=== PATIENT | female | born 2000 | race Caucasian/White ===

== ENCOUNTER 2021-03-11 04:43 | Emergency (ER) | payer MEDICAID, OTHER ==
[~2021-03-11] VITALS: Ht 167.6 cm; Wt 77.3 kg
[2021-03-11] MEDS ORDERED: ondansetron/PF 4mg/2ml inj IV ONE (05:15)
[2021-03-11] MEDS ORDERED: normal saline 1000ML IV soln IVB ONE (05:15)
[2021-03-11] MEDS ORDERED: ketorolac trometh. 30mg/ml inj. IV ONE (05:15)
[2021-03-11 05:48] LABS: BASOPHILS % (AUTO) 0.1 % (0-1); EOSINOPHILS # (AUTO) 0.1 X10'3 (0-0.9); EOSINOPHILS % (AUTO) 0.7 % (0-6); HEMATOCRIT 40.8 % (35.0-45.0); HEMOGLOBIN 14.2 g/dl (12.0-16.0); LYMPHOCYTES # (AUTO) 0.2 X10'3 (1.1-4.8); LYMPHOCYTES % (AUTO) 2.3 % (21-51); MEAN CORPUSCULAR HEMOGLOBIN 32.2 PG (27.0-31.0); MEAN CORPUSCULAR HGB CONC 34.8 g/dL (33.0-36.5); MEAN CORPUSCULAR VOLUME 92.6 FL (78-98); MEAN PLATELET VOLUME 8.6 FL (7.4-10.4); MONOCYTES # (AUTO) 0.5 X10'3 (0-0.9); MONOCYTES % (AUTO) 5.8 % (2-12); NEUTROPHILS # (AUTO) 8.4 X10'3 (1.8-7.7); NEUTROPHILS % (AUTO) 91.1 % (42-75); PLATELET COUNT 285 X10'3 (140-440); RED BLOOD COUNT 4.41 X10'6 (4.20-5.60); RED CELL DISTRIBUTION WIDTH 12.2 % (11.5-14.5); WHITE BLOOD COUNT 9.3 X10'3 (4.5-11.0)
[2021-03-11 06:09] LABS: ALANINE AMINOTRANSFERASE 39 U/L (12-78); ALBUMIN 4.5 G/DL (3.4-5.0); ALBUMIN/GLOBULIN RATIO 1.3 (1.1-1.5); ALKALINE PHOSPHATASE 70 IU/L (20-180); ANION GAP 13 (8-16); ASPARTATE AMINO TRANSFERASE 30 U/L (10-37); BILIRUBIN,TOTAL 0.3 MG/DL (0.1-1.0); BLOOD UREA NITROGEN 5 MG/DL (7-18); BUN/CREATININE RATIO 6.3 (6.6-38.0); CALCIUM 9.2 MG/DL (8.5-10.1); CHLORIDE 105 MMOL/L (99-107); CREATININE 0.79 MG/DL (0.40-0.90); GLUCOSE 127 MG/DL (70-104); POTASSIUM 4.1 MMOL/L (3.5-5.1); SODIUM 143 MMOL/L (135-145); eGFR > 90 ML/MIN
[2021-03-11 06:14] LABS: LIPASE < 50 U/L (73-393)
[2021-03-11 06:44] LABS: BETA HCG,QUANTITATIVE < 1.0 mIU/ml
[2021-03-11 06:54] LABS: CLARITY,URINE SLIGHTLY CLOUDY (Clear); COLOR,URINE YELLOW (Yellow); GLUCOSE, URINE NEGATIVE (Neg); KETONES,URINE TRACE mg/dl (Neg); LEUKOCYTE ESTERASE ,URINE NEGATIVE (Neg); NITRITES, URINE NEGATIVE (Neg); OCCULT BLOOD,URINE NEGATIVE (Neg); PH,URINE >=9.0 (4.8-8.0); PROTEIN,URINE NEGATIVE (Neg); UROBILINOGEN,URINE 0.2 E.U/dL (0.2-1.0)
[2021-03-11 06:56] LABS: UA COLLECTION TYPE CLN CATCH MIDSTREAM
[2021-03-11 07:00] LABS: BACTERIA,URINE 1+ /HPF (Neg); MUCUS STRANDS FEW /LPF (Neg); RBC,URINE NONE SEEN /HPF (0-2); SQUAMOUS EPITHELIAL CELL,UR MANY /LPF (FEW); WBC,URINE 0-4 /HPF (0-4)
[2021-03-11 07:04] LABS: URINE HCG NEGATIVE (NEG)
[2021-03-11] MEDS ORDERED: ONDA-103 PO (07:17)
[2021-03-11 07:39] VITALS: BP 158/99
== END 2021-03-11 07:41 | disposition home or self-care (01) ==
LOC: ER 04:44
DX: U07.1 COVID-19 (principal); R11.10 Vomiting, unspecified
CPT/HCPCS: 36415; 71045; 80053; 81001; 81025; 83690; 84145; 84484; 84702; 85025; 87635; 96374; 96375; 99284; C9803; J1885; J2405; J7030

== ENCOUNTER 2021-08-08 16:10 | Emergency (ER) | payer MEDICAID ==
[~2021-08-08] VITALS: Ht 167.6 cm; Wt 81.8 kg
[~2021-08-08 16:10] MED LIST: ONDA-103 PO
[2021-08-08 16:17] VITALS: BP 134/76
[2021-08-08] MEDS ORDERED: carbamide peroxide 15ml bottle EACH EAR SCH (17:00)
== END 2021-08-08 18:42 | disposition home or self-care (01) ==
LOC: ER 16:10
DX: H61.23 Impacted cerumen, bilateral (principal)
CPT/HCPCS: 99283

== ENCOUNTER 2023-02-08 11:41 | Emergency (ER) | payer OTHER, MEDICAID ==
[~2023-02-08] VITALS: Ht 167.6 cm; Wt 97.0 kg
[2023-02-08 11:50] VITALS: TEMP 98
[2023-02-08 12:26] LABS: URINE HCG NEGATIVE (NEG)
[2023-02-08] MEDS ORDERED: oxyCODONE/APAP 5-325mg tablet PO ONE (13:15)
[2023-02-08] MEDS ORDERED: ketorolac trometh inj. 60 MG/2 ML VIAL IM ONE (13:35)
[2023-02-08] MEDS ORDERED: diazepam inj 5 MG/ML inj. IM ONE (13:35)
[2023-02-08] MEDS ORDERED: NAPR-56 PO (13:39)
[2023-02-08] MEDS ORDERED: CYCL-1 PO (13:39)
[2023-02-08 14:14] VITALS: BP 154/89; PULSE 75; RESP 20; O2SAT 98
== END 2023-02-08 14:18 | disposition home or self-care (01) ==
LOC: ER 11:42
DX: S01.81XA Laceration without foreign body of other part of head, initial encounter (principal); S39.012A Strain of muscle, fascia and tendon of lower back, initial encounter; V98.8XXA Other specified transport accidents, initial encounter; Y93.89 Activity, other specified; Y92.89 Other specified places as the place of occurrence of the external cause; Y99.8 Other external cause status
CPT/HCPCS: 12011; 70450; 72131; 81025; 96372; 99285; J1885; J3360

== ENCOUNTER 2023-03-19 14:14 | Emergency (ER) | payer SELFPAY ==
[~2023-03-19 14:14] MED LIST changes: +CYCL-1 PO
== END 2023-03-19 16:20 | disposition left against medical advice (07) ==
LOC: ER 14:14
DX: M54.9 Dorsalgia, unspecified (principal); Z53.21 Procedure and treatment not carried out due to patient leaving prior to being seen by health care provider; V89.2XXA Person injured in unspecified motor-vehicle accident, traffic, initial encounter; Y93.89 Activity, other specified; Y92.89 Other specified places as the place of occurrence of the external cause; Y99.8 Other external cause status